=== PATIENT | male | born 1995 | race Two or more races ===

== ENCOUNTER 2024-08-07 19:59 | Emergency (ER) | payer SELFPAY ==
[2024-08-07 20:08] VITALS: BP 152/87; PULSE 102; RESP 14; TEMP 36.7; O2SAT 100
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
== END 2024-08-07 22:20 | disposition left against medical advice (07) ==
DX: Z53.21 Procedure and treatment not carried out due to patient leaving prior to being seen by health care provider (principal)
CPT/HCPCS: 99199